=== PATIENT | male | born 1955 ===

== ENCOUNTER 2022-12-13 18:00 | Emergency (ER) | payer OTHER, MEDICARE, SELFPAY ==
[2022-12-13 18:06] VITALS: BP 134/76; PULSE 70; RESP 18; TEMP 36.8; O2SAT 95
--- NOTE | 2022-12-13 18:28 | DI.RAD_ITS ---
Exam(s) XR HAND LT COMPLETE EXAM: XR HAND LT COMPLETE CLINICAL HISTORY: puncture wound to web of 3rd/4th. TECHNIQUE: 2D digital imaging was performed. Three views. COMPARISON: No exams were available for comparison FINDINGS: BONES: No acute fracture is present. No bony destructive lesion is seen. JOINTS: No dislocation present. SOFT TISSUE: Mild cysts swelling webspace between bases of the 3rd and 4th fingers. IMPRESSION: Unremarkable radiographs of the left hand. DATA REPOSITORY: RADIATION DOSE DELIVERED:
[2022-12-13] MEDS: Lidocaine/Epinephri/Tetracaine Topical Gel 3 ML TP (18:39)
--- NOTE | 2022-12-13 19:04 | DI.VRAD_ITS ---
PROCEDURE INFORMATION: Exam: XR Left Hand Exam date and time: 12/13/2022 6:26 PM Age: 67 years old Clinical indication: Injury or trauma; Got stick stuck in his hand; Left; Patient HX: Puncture wound to web of 3rd and 4th digits. TECHNIQUE: Imaging protocol: Radiologic exam of the left hand. Views: 3 or more views. COMPARISON: No relevant prior studies available. FINDINGS: Bones/joints: No acute fracture or dislocation. The alignment is anatomic. Soft tissues: Soft tissue thickening noted in the soft tissues between the base of the 3rd and 4th metacarpal bones, likely related to known foreign body. IMPRESSION: 1. No acute fracture. 2. Evidence of soft tissue foreign body injury between the 3rd and 4th metacarpal bones. Of note, a delineated foreign body is not clearly seen. Dictated and Authenticated by: Monica Thomason MD. Ordering:ASHLY Chahal MD
--- NOTE | 2022-12-13 19:08 | ED.GENADUL_ITS ---
Discharge Plan Disposition Patient Disposition: Home Condition: Stable Discharge Details Clinical Impression: Puncture wound of hand Primary Care Provider: Unknown,Unknown ED Provider: Fela Bernstein Home Meds and New Rx's Prescriptions: New cephalexin 500 mg capsule 500 mg PO Q6H 7 Days Qty: 28 0RF Continued atorvastatin 10 mg Tablet 10 mg PO DAILY tamsulosin [Flomax] 0.4 mg Capsule 0.4 mg PO DAILY Discharge Instructions Instructions: Puncture Wound (ED) Additional Instructions: Change dressing every 48 hours This will likely take 4 weeks to heal Recommend washing with soap and water every 48 hours and redressing, allow to air dry for several hours a day after 5 days May take ibuprofen and Tylenol as needed for pain Rest your hand is much as possible Should you develop increased swelling, redness, fever, pain, you should be reevaluated Medical Decision Making 67-year-old male presents with puncture to the hand just prior to arrival Unsure regarding tetanus, this was updated in this visit X-ray was ordered with soft tissue injury, no evidence of fracture or obvious foreign body, patient made aware that would frequently is not visualized on x- ray and should he develop signs or symptoms of infection he should have additional imaging which may include ultrasound He will be placed on Keflex Secondary to risk of infection with puncture wound, this was not closed but let was applied and irrigated copiously and Keflex was started He will need close outpatient reassessment and is aware this will likely take 4 to 6 weeks to heal completely by secondary intention Return precautions reviewed and patient expressed understanding no additional visible evidence of trauma Medical Records Medical records reviewed: Yes I reviewed the patient's medical records. HPI General Date/Time Provider Initiated Documentation: 12/13/22 18:10 . HPI Narrative: This 67-year-old gentleman with history of hyperlipidemia presents with puncture wound to his left hand. And he was snowshoeing and fell in a stick. He pulled the stick from his hands just prior to arrival. Denies any additional injuries. Denies any strength or sensation change. Denies history of coagulopathy. Related Data Home Medications Medication Instructions Recorded Confirmed atorvastatin 10 mg tablet 10 mg PO DAILY 12/13/22 12/13/22 cephalexin 500 mg capsule 500 mg PO Q6H 7 days #28 caps 12/13/22 tamsulosin 0.4 mg capsule (Flomax) 0.4 mg PO DAILY 12/13/22 12/13/22 Previous Rx's Medication Instructions Recorded cephalexin 500 mg capsule 500 mg PO Q6H 7 days #28 caps 12/13/22 Allergies Allergy/AdvReac Type Severity Reaction Status Date / Time No Known Allergies Allergy Unverified 12/13/22 18:06 General Stated Complaint: Laceration VIVIENNE: 4 PFSH All Active Problems (Updated 12/13/22 @ 19:10 by SYLVIA Major) Puncture wound of hand (Acute) Social History Smoking/Tobacco Use Status: Never Smoking risk assessment performed?: Yes Alcohol Intake: never Drug use: Never Substance use type: does not use Do you feel safe at home: Yes Do you feel safe in your relationship?: Yes Exam Const General: cooperative, comfortable and no acute distress Extrem Hand/finger images: 1. Puncture wound noted approximately 1 inch deep, no obvious residual foreign body, neurovascularly intact Course Vital Signs Vital signs: Vital Signs Temperature 36.8 C 12/13/22 18:06 Pulse 70 12/13/22 18:06 Respiratory Rate 18 12/13/22 18:06 Blood Pressure 134/76 12/13/22 18:06 Pulse Oximetry 95 12/13/22 18:06 Temperature 36.8 C 12/13/22 18:06 Temperature Source Tympanic 12/13/22 18:06 Pulse 70 12/13/22 18:06 Respiratory Rate 18 12/13/22 18:06 Respiratory Effort Normal, Non-Labored 12/13/22 18:05 Blood Pressure 134/76 12/13/22 18:06 Pulse Oximetry 95 12/13/22 18:06 Oxygen Delivery Method Room Air 12/13/22 18:06 Oxygen Flow Rate 0 12/13/22 18:06 Pain Level 0 12/13/22 18:28
== END 2022-12-13 19:29 | disposition home or self-care (01) ==
PROVIDERS: Emergency Provider Physician Assistant; Visit Provider Physician Assistant
DX: S61.432A Puncture wound without foreign body of left hand, initial encounter (principal); X58.XXXA Exposure to other specified factors, initial encounter
CPT/HCPCS: 96372; 99284; 73130